=== PATIENT | female | born 1950 | race Caucasian/White ===

== ENCOUNTER 2021-02-25 17:31 | Observation (INO) ==
--- NOTE | 2021-02-25 17:42 | ERNOTE ---
Neuro HPI ER Record Date of Service: 02/25/21 Presenting Symptoms: facial droop, impaired speech Time Seen by Provider: 02/25/21 17:41 Source: patient, RN notes reviewed, past records Exam Limitations: no limitations Immunizations: IMMUNIZATION HX Immunizations Up to Date Yes History of Influenza Vaccine Yes Hx Pneumococcal Vaccination Yes Allergies/Adverse Reactions: Allergies Allergy/AdvReac Type Severity Reaction Status Date / Time Sulfa (Sulfonamide AdvReac Diarrhea Verified 02/25/21 17:44 Antibiotics) Home Medications: HOME MEDICATIONS cholecalciferol (vitamin D3) 125 mcg (5,000 unit) capsule 125 mcg PO DAILY [Last Taken Unknown] levothyroxine 75 mcg tablet See Rx Instructions .ROUTE .COMPLEX #30 tab 01/07/21 [Last Taken Unknown] duloxetine 30 mg capsule,delayed release 30 mg PO DAILY #30 cap 02/10/21 [Last Taken Unknown] Diphenoxylate HCl/Atropine [Lomotil 2.5-0.025 mg Tablet] 1 tab PO DAILY PRN 02/25/21 [Last Taken Unknown] Naproxen [Naprosyn] 500 mg PO DAILY PRN 02/25/21 [Last Taken Unknown] - History of Present Illness Narrative: Cristina is a 71-year-old female who presents to the emergency department from home by private vehicle for possible stroke. She began experiencing a facial droop and slurred speech approximately 20 minutes prior to arrival. This currently continues. She has no prior history of TIA or CVA. She reports that she was f eeling well prior to the episode. She experienced some nausea at the onset of the symptoms but this has resolved. Date (Duration): 02/25/21 Time (Timing): 17:10 Onset: sudden onset, continues in ER - Character of Deficits New weakness: Present: facial (lt) Additional Deficits: Present: impaired speech Baseline Cognition: Present: alert, oriented x 4 Baseline Gait: Present: walks w/o assistance Associated Symptoms: Denies: chest pain, headache, disoriented, confused Prior Treament: Denies: recently seen, similar symptoms before Review of Systems - Review of Systems Constitutional: Absent: recent illness, fever, chills EYE: Absent: eye pain, vision changes ENT: Absent: ear pain, nose congestion, nasal drainage, sore throat Respiratory: Absent: shortness of breath, cough Cardiology: Absent: chest pain, syncope Gastrointestinal/Abdominal: Present: nausea. Absent: vomiting, abdominal pain Genitourinary: Present: no symptoms reported Musculoskeletal: Present: no symptoms reported Skin: Absent: rash, lesions Neurological: Present: weakness - Right sided facial droop, pre-existing deficit - Left sided facial droop. Absent: headache, dizziness/light-headedness Endocrine: Present: no symptoms reported Hematologic/Lymphatic: Absent: easy bruising, easy bleeding Psych: Present: no symptoms reported Medical History (Last Updated 02/25/21 @ 19:34 by Lory Kee NP) Osteopenia (Chronic) Onset Date: ~2011 Hypothyroidism (Chronic) Onset Date: Unknown GERD (gastroesophageal reflux disease) (Chronic) Onset Date: Unknown Arthritis (Chronic) Onset Date: Unknown History of cardiac arrhythmia (Resolved) Onset Date: ~2008 COVID-19 Onset Date: ~11/16/20 De Quervain's disease (tenosynovitis) Onset Date: ~2011 Surgical History: Surgical History (Last Reviewed 02/25/21 @ 19:04 by Lory Kee NP) H/O tubal ligation Onset Date: ~1975 History of biopsy Onset Date: ~2010 vaginal biopsy 1978, 2010 History of breast surgery Onset Date: ~2004 bloody discharge from nipple rt breast History of colonoscopy Onset Date: ~2009 Dr Vincent non=specific increase in mucosal eosinophils History of dilation and curettage Onset Date: ~1969 History of esophagogastroduodenoscopy Onset Date: ~2009 History of total abdominal hysterectomy and bilateral salpingo-oophorectomy Onset Date: ~1989 History of vaginal surgery Onset Date: ~1970 vaginal and rectal reconstruction Family History: Family History (Last Reviewed 02/25/21 @ 19:04 by Lory Kee NP) Father Cancer kidney cancer CHF (congestive heart failure) Mother Stomach ulcer COPD (chronic obstructive pulmonary disease) Social History: (Last Reviewed 02/25/21 @ 19:04 by Lory Kee NP) Social History: Marital status: Service: No Tobacco: Smoking Status: Never smoker Alcohol: alcohol intake: former Substance Use: substance use type: does not use Dietary Habits: caffeine: Yes Physical Exam - Physical Exam General Appearance: Present: wd/wn, alert, mild distress Head Exam: Present: normal inspection, no evidence of injury Eye Exam: Normal inspection: bilateral, PERRL: bilateral, EOMI: bilateral Ears, Nose, Throat: Present: normal ENT inspection, normal pharynx Neck: Present: normal inspection, nontender, supple, full range of motion Respiratory: Present: no respiratory distress, normal breath sounds, no accessory muscle use, lungs clear Cardiovascular/Chest: Present: regular rate, rhythm, no murmur, normal perip heral pulses Gastrointestinal/Abdominal: Present: nontender, nondistended, soft Extremity Exam: Present: normal inspection, non-tender, normal range of motion, no edema Neurological Exam: Present: alert, oriented, facial droop, other - slurred speech. Absent: normal mood/affect, no motor/sensory deficits Skin Exam: Present: normal color, warm/dry Jose Antonio Coma Scale - Assess Eye Opening: Spontaneous Motor: Obeys Commands Verbal: Oriented - Total Coma Scale Total: 15 Initial Stroke Assessment - Date/Time of assessment Stroke Scale Date: 02/25/21 - n Stroke Scale Time: 17:41 - NIH Stroke Scale Level of Consciousness: Alert LOC Questions (Year and Age): Answers both correctly LOC Commands (open/close eyes/fist): Performs both correctly Lateral Gaze Paresis: None Visual Field Loss: No visual loss Facial Palsy: Partial facial paralysis Right Arm Motor (10 sec hold): No drift Left Arm Motor (10 sec hold): No drift Right Leg Motor (5 sec hold): No drift Left Leg Motor (5 sec hold): No drift Limb Ataxia (finger/nose heel/nugent): Absent Sensory Loss (pinprick arms/legs/face): No sensory loss Language Aphasia (description/naming/reading): No aphasia; normal Dysarthria (speech clarity): Slurring, intelligeble Neglect Inattention (visual/tactile/auditory/spatial/person): No neglect Initial Stroke Scale Score:: 3 Stroke Inclusion/Exclusion Cri - Inclusion Questions: Yes Onset of symptoms <3 1/2 hours of admission to ETC: Yes Secondary Stroke Assessment - Date/Time of assessment Stroke Scale Time: 18:08 - NIH Stroke Scale Level of Consciousness: Alert LOC Questions (Year and Age): Answers both correctly LOC Commands (open/close eyes/fist): Performs both correctly Lateral Gaze Paresis: None Visual Field Loss: No visual loss Facial Palsy: Normal movement Right Arm Motor (10 sec hold): No drift Left Arm Motor (10 sec hold): No drift Right Leg Motor (5 sec hold): No drift Left Leg Motor (5 sec hold): No drift Limb Ataxia (finger/nose heel/nugent): Absent Sensory Loss (pinprick arms/legs/face): No sensory loss Language Aphasia (description/naming/reading): No aphasia; normal Dysarthria (speech clarity): Normal articulation Neglect Inattention (visual/tactile/auditory/spatial/person): No neglect Secondary Stroke Scale Total:: 0 Progress - Results and Orders Patient's Lab Results:: I have reviewed the patient's lab results. - Vital Signs Patient's Vital Signs:: I have reviewed the patient's vital signs. - EKG EKG #1 EKG: NSR EKG read: Reviewed by me - X-Ray X-Ray #1 X-Ray: chest Interpretation: Reviewed by me X-ray Comments: No acute cardiopulmonary findings - CT/Ultrasound CT/Ultrasound Narrative: Head CT: Findings: Exam shows symmetric appearing ventricular system and cortical sulci. There is no positive mass effect or midline shift. There is no evidence for intracranial hemorrhage. There are no focal abnormal hypodensities to suggest vascular territory infarct. There appear to be postoperative changes to the ethmoid air cells and the right maxillary sinus. IMPRESSION: NO ACUTE INTRACRANIAL PATHOLOGY IDENTIFIED. FINDINGS TELEPHONED TO EMERGENCY ROOM PERSONNEL AT 1749 HOURS Electronically signed by Kalyan Rodrigues M.D.. - Progress/Reassessment Progress:: Improved Progress Note-Subjective: 02/25/21 19:30 The patient's slurred speech and facial droop resolved shortly after she returned from CT. I contacted Dr. Wallace at 1909. He agreed to admit the patient to observation status. When I discussed this with the patient at 1914, her speech has become slurred again. [facility] contacted. 02/25/21 20:[address] Clark, vascular neurology fellow at [facility], regarding the patient's speech deficit that had previously resolved. She advised that the patient could be given TPA if she felt that the possibility of her speech deficit resolving outweighed the risks associated with TPA administration. I discussed this with the patient and she does not want to take TPA. She is aware that her speech deficit may be permanent, and that her symptoms may even worsen. Dr. Wallace was updated with this information. Departure Clinical Impression: Stroke-like symptoms - Departure Disposition: Short Term Hospital Inpatient Condition: Stable Referrals: Juana Zamora MD [Primary Care Provider] -
[2021-02-25 18:05] LABS: Hematocrit 45.9 % (37.0-47.0); Hemoglobin 14.8 gm/dL (12.5-16.0); Mean Cell Volume 92.7 fl (78-100); Mean Corpuscular Hemoglobin 29.9 pg (27-31); Mean Corpuscular Hgb Conc 32.2 g/dl (32-36); Mean Platelet Volume 9.5 fl (8-12.5); Neutrophil # 3.6 K/mm3 (1.3-6.0); Neutrophil % 54.5 % (42-75.0); Platelet Count 317 K/mm3 (150-450); Red Blood Count 4.95 M/mm3 (4.2-5.4); Red Cell Distribution Width 12.6 % (11.5-14.0); White Blood Count 6.7 K/mm3 (4.0-10.5)
[2021-02-25 18:20] LABS: Urine Bilirubin Negative (NEGATIVE); Urine Blood Negative /ul (NEGATIVE); Urine Ketone Negative (NEGATIVE); Urine Nitrite Negative (NEGATIVE); Urine Protein Negative (NEGATIVE); Urine Urobilinogen Normal (NORMAL); Urine pH 7.5 pH (5.0-7.0)
[2021-02-25 18:23] LABS: Prothrombin Time (Patient) 10.7 Seconds (9.1-10.7)
[2021-02-25 18:25] LABS: INR 1.03 INR (0.92-1.08); Partial Thrombolplastin Time 26.4 Seconds (24-32)
[2021-02-25 18:27] LABS: Albumin * 3.5 gm/dl (3.4-5.0); Anion Gap 9.5 mmol/L (6.8-13.8); BUN/Creatinine Ratio 8.9 (9.0-21.6); Bilirubin, Total 0.3 mg/dL (0.0-1.1); Ca. Corrected For Albumin 8.7 mg/dL (8.4-10.2); Calcium * 8.6 mg/dL (7.9-10.9); Carbon Dioxide 29.1 mmol/L (24-32.6); Potassium 3.6 mmol/L (3.4-4.6); Total Protein 7.3 gm/dL (6.2-8.2)
[2021-02-25 18:47] LABS: Urine Appearance Clear (CLEAR); Urine Bacteria TRACE; Urine Color Pale Yellow; Urine RBC TRACE /hpf (0-5)
[2021-02-25] MEDS ORDERED: ROSUVASTATIN CALCIUM 10 MG TABLET PO SCH (21:45)
[2021-02-25] MEDS: CLOPIDOGREL BISULFATE 75 MG TABLET PO SCH (22:41)
[2021-02-25] MEDS: ASPIRIN 325 MG TABLET.DR PO SCH (22:41)
[2021-02-26] MEDS ORDERED: METOPROLOL TARTRATE 1 MG/ML AMPUL IV ONE (03:28)
[2021-02-26] MEDS ORDERED: LEVOTHYROXINE SODIUM 75 MCG TABLET PO SCH (07:00)
[2021-02-26] MEDS: ASPIRIN 325 MG TABLET.DR PO SCH (08:04)
[2021-02-26] MEDS: CLOPIDOGREL BISULFATE 75 MG TABLET PO SCH (08:04)
[2021-02-26] MEDS ORDERED: CLOPIDOGREL BISULFATE 75 MG TABLET PO SCH (09:00)
[2021-02-26] MEDS ORDERED: ASPIRIN 325 MG TABLET.DR PO SCH (09:00)
--- NOTE | 2021-02-26 10:54 | HPDIS ---
Chief Complaint - Chief Complaint Date of Service: 02/26/21 Time of Service: 10:31 Chief Complaint: Facial droop, slurred speech History of Present Illness: 71-year-old female with history of hypothyroidism and depression presented to the hospital yesterday evening for sudden onset left-sided facial droop and slurring of speech. When this episode began she also was nauseated. ER work-up was unremarkable and her symptoms resolved within 20 to 30 minutes of her arrival. CT scan showed no intracranial pathology or bleeds, her lab work was unremarkable. Normal CHEM panel and normal kidney function. CBC unremarkable as well. Urine did show some leukocyte esterase, trace bacteria, trace white blood cells but she is asymptomatic from a neuro standpoint. Urine culture came back this morning with a greater than 100,000 gram-negative bacilli. Patient was admitted under observation for TIA. Prior to being moved to the floor the patient still endorsed some difficulty with speech but the ER provider working her up did not notice it. This morning when evaluated patient had no neurologic dysfunction whatsoever, speech was back to normal, upper and lower extremity strength and sensation was intact, and cranial nerves were intact. Patient does have a chronic left sided facial droop which is mild she states has been there "for as long as she can remember ". This is not new to her recent presentation. Normal facial strength with good resolution of the facial droop when she smiles but it does return when she is around her face to rest. Her vital signs have been stable and she is been afebrile. She was started on a statin medication and Plavix. She was not started on on any antibiotics by the ER physician, will start her on this today. She is allergic to sulfa medications. Medical History (Last Updated 02/25/21 @ 19:34 by Lory Kee NP) Osteopenia (Chronic) Onset Date: ~2011 Hypothyroidism (Chronic) Onset Date: Unknown GERD (gastroesophageal reflux disease) (Chronic) Onset Date: Unknown Arthritis (Chronic) Onset Date: Unknown History of cardiac arrhythmia (Resolved) Onset Date: ~2008 COVID-19 Onset Date: ~11/16/20 De Quervain's disease (tenosynovitis) Onset Date: ~2011 Surgical History: Surgical History (Last Reviewed 02/25/21 @ 21:44 by Rupinder Richardson RN) H/O tubal ligation Onset Date: ~1975 History of biopsy Onset Date: ~2010 vaginal biopsy 1978, 2010 History of breast surgery Onset Date: ~2004 bloody discharge from nipple rt breast History of colonoscopy Onset Date: ~2009 Dr Vincent non=specific increase in mucosal eosinophils History of dilation and curettage Onset Date: ~1969 History of esophagogastroduodenoscopy Onset Date: ~2009 History of total abdominal hysterectomy and bilateral salpingo-oophorectomy Onset Date: ~1989 History of vaginal surgery Onset Date: ~1970 vaginal and rectal reconstruction Family History: Family History (Last Reviewed 02/25/21 @ 21:43 by Rupinder Richardson RN) Father Cancer kidney cancer CHF (congestive heart failure) Mother Stomach ulcer COPD (chronic obstructive pulmonary disease) Social History: (Last Updated 02/25/21 @ 21:44 by Rupinder Richardson RN) Social History: Marital status: lives independently: Yes household members: spouse number of children: 2 number of grandchildren: 5 caregiver/support person: No Service: No Tobacco: Smoking Status: Never smoker Alcohol: alcohol intake: former Substance Use: substance use type: does not use Dietary Habits: caffeine: Yes Review Of Systems (GEN) - Review of Systems Generalized/Overall Review: Absent: Weakness, Chills, Fever EENTM: Absent: Eye Pain, Double Vision Respiratory: Absent: Cough, Shortness of Breath Cardiac: Absent: Chest Pain, Edema Abdominal: Absent: Nausea, Vomiting, Abdominal Pain Genitourinary: Absent: Burning, Urgency, Frequency Musculoskeletal: Present: No Symptoms Reported Neurological: Present: Pre-existing Deficit - Mild left-sided facial droop around her mouth. Absent: Headache, Numbness, Weakness Skin: Present: No Symptoms Reported Endocrine: Present: No Symptoms Reported Immunizations: IMMUNIZATION HX Immunizations Up to Date Yes History of Influenza Vaccine Yes Hx Pneumococcal Vaccination Yes Allergies/Adverse Reactions: Allergies Allergy/AdvReac Type Severity Reaction Status Date / Time Sulfa (Sulfonamide AdvReac Diarrhea Verified 02/25/21 17:44 Antibiotics) Home Medications: HOME MEDICATIONS cholecalciferol (vitamin D3) 125 mcg (5,000 unit) capsule 125 mcg PO DAILY 09/25/20 [Last Taken Unknown] DULoxetine HCL [Cymbalta] 30 mg PO HS 02/25/21 [Last Taken Unknown] Diphenoxylate HCl/Atropine [Lomotil 2.5-0.025 mg Tablet] 1 tab PO DAILY PRN 02/25/21 [Last Taken Unknown] Levothyroxine Sodium [Synthroid] See Rx Instructions PO .COMPLEX 02/25/21 [Last Taken Unknown] Aspirin [Aspirin Enteric Coated] 325 mg PO DAILY #30 tablet.dr 02/26/21 [Last Taken Unknown] Atorvastatin Calcium 20 mg PO DAILY #30 tab 02/26/21 [Last Taken Unknown] Cephalexin Monohydrate [Keflex] 500 mg PO Q12H #10 cap 02/26/21 [Last Taken Unknown] Clopidogrel Bisulfate [Plavix] 75 mg PO DAILY #30 tab 02/26/21 [Last Taken Unknown] Exam - Exam Vital Signs: Vital Signs - Last Taken Temp 36.5 C 02/26/21 08:05 Pulse 73 02/26/21 08:05 Resp 18 02/26/21 08:05 BP 122/64 02/26/21 08:05 Pulse Ox 95 02/26/21 08:05 Constitutional: Present: Alert, Oriented x3, Cooperative, Elderly ENT Exam: Present: hearing grossly normal Eye Exam: bilateral eye: normal inspection, PERRL, EOMI Neck: Present: non-tender, supple Back Exam: Present: no CVA tenderness Respiratory: Present: lungs clear, normal breath sounds, no respiratory distress Cardiovascular/Chest: Present: regular rate, rhythm, no murmur Peripheral Pulses: dorsalis-pedis (R): 2+, dorsalis-pedis (L): 2+ Abdomen: Present: soft, nontender, nondistended Extremity: Present: non-tender, normal inspection, no pedal edema Skin Exam: Present: normal color, warm/dry 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 Absent: motor weakness, sensory deficit, dizzy/light- headedness Appearance: Present: appropriate appearance, appropriate insight, neat. Absent: impaired insight, impaired recent memory Eye contact: Present: cooperative, good eye contact Thoughts: Present: normal thought pattern, normal mood /affect Diagnostic Studies: Abnormal Lab Results 02/25/21 02/25/21 02/25/21 Range/Units 17:50 18:00 18:00 Eosinophils % 3.1 H (0.0-3.0) % Basophils % 1.6 H (0.0-1.0) % Est GFR (Non-Af Amer) 45 L (60-130) mL/min BUN/Creatinine Ratio 8.9 L (9.0-21.6) Ur Leukocyte Esterase 100 H (NEGATIVE) /ul Urine WBC 5-10 H (0-5) /hpf Microbiology 02/25/21 18:13 Urine Culture - Preliminary Urine,Voided Gram Negative Bacilli Laboratory Results WBC 6.7 K/mm3 (4.0-10.5) 02/25/21 18:00 RBC 4.95 M/mm3 (4.2-5.4) 02/25/21 18:00 Hgb 14.8 gm/dL (12.5-16.0) 02/25/21 18:00 Hct 45.9 % (37.0-47.0) 02/25/21 18:00 MCV 92.7 fl (78-100) 02/25/21 18:00 MCH 29.9 pg (27-31) 02/25/21 18:00 MCHC 32.2 g/dl (32-36) 02/25/21 18:00 RDW 12.6 % (11.5-14.0) 02/25/21 18:00 Plt Count 317 K/mm3 (150-450) 02/25/21 18:00 MPV 9.5 fl (8-12.5) 02/25/21 18:00 Immature Gran % (Auto) 0.30 % (0.001-0.429) 02/25/21 18:00 Immature Gran # (Auto) 0.02 K/mm3 (0.000-0.0310) 02/25/21 18:00 Neutrophils % 54.5 % (42-75.0) 02/25/21 18:00 Lymphocytes % 32.7 % (20-51) 02/25/21 18:00 Monocytes % 7.8 % (0.0-9) 02/25/21 18:00 Eosinophils % 3.1 % (0.0-3.0) H 02/25/21 18:00 Basophils % 1.6 % (0.0-1.0) H 02/25/21 18:00 Nucleated RBC % 0.0 k/mm3 (0-1) 02/25/21 18:00 Neutrophils # 3.6 K/mm3 (1.3-6.0) 02/25/21 18:00 Lymphocytes # 2.19 k/mm3 (1.5-3.5) 02/25/21 18:00 Monocytes # 0.5 k/mm3 (0.0-1.0) 02/25/21 18:00 Eosinophils # 0.2 k/mm3 (0.0-0.7) 02/25/21 18:00 Absolute Basophils 0.1 k/mm3 (0.0-0.1) 02/25/21 18:00 ESR 14 mm/hr (0-15) 02/25/21 18:00 PT 10.7 Seconds (9.1-10.7) 02/25/21 18:00 INR (Anticoag Therapy) 1.03 INR (0.92-1.08) 02/25/21 18:00 PTT (Nu) 26.4 Seconds (24-32) 02/25/21 18:00 Sodium 139 mmol/L (132-142) 02/25/21 18:00 Plasma Sodium 139 mmol/L (130-142) 02/25/21 18:00 Potassium 3.6 mmol/L (3.4-4.6) 02/25/21 18:00 Chloride 104 mmol/L (97-106) 02/25/21 18:00 Carbon Dioxide 29.1 mmol/L (24-32.6) 02/25/21 18:00 Anion Gap 9.5 mmol/L (6.8-13.8) 02/25/21 18:00 BUN 11 mg/dL (3-23) 02/25/21 18:00 Creatinine 1.24 mg/dL (0.4-1.4) 02/25/21 18:00 Est GFR (Non-Af Amer) 45 mL/min (60-130) L 02/25/21 18:00 BUN/Creatinine Ratio 8.9 (9.0-21.6) L 02/25/21 18:00 Random Glucose 100 mg/dL (70-110) 02/25/21 18:00 Calcium 8.6 mg/dL (7.9-10.9) 02/25/21 18:00 Calcium Adj for Albumin 8.7 mg/dL (8.4-10.2) 02/25/21 18:00 Total Bilirubin 0.3 mg/dL (0.0-1.1) 02/25/21 18:00 AST 18 U/L (0-48) 02/25/21 18:00 ALT 26 U/L (19-67) 02/25/21 18:00 Alkaline Phosphatase 85 U/L (50-170) 02/25/21 18:00 Total Protein 7.3 gm/dL (6.2-8.2) 02/25/21 18:00 Albumin 3.5 gm/dl (3.4-5.0) 02/25/21 18:00 Urine Color Pale yellow 02/25/21 17:50 Urine Appearance Clear (CLEAR) 02/25/21 17:50 Urine pH 7.5 pH (5.0-7.0) 02/25/21 17:50 Ur Specific [place] 1.010 SP.GR. (1.005-1.010) 02/25/21 17:50 Urine Protein Negative mg/dL (NEGATIVE) 02/25/21 17:50 Urine Glucose (UA) Negative mg/dL (NEGATIVE) 02/25/21 17:50 Urine Ketones Negative mg/dL (NEGATIVE) 02/25/21 17:50 Urine Blood Negative /ul (NEGATIVE) 02/25/21 17:50 Urine Nitrate Negative (NEGATIVE) 02/25/21 17:50 Urine Bilirubin Negative mg/dl (NEGATIVE) 02/25/21 17:50 Urine Urobilinogen Normal EU/dl (NORMAL) 02/25/21 17:50 Ur Leukocyte Esterase 100 /ul (NEGATIVE) H 02/25/21 17:50 Urine RBC Trace /hpf (0-5) 02/25/21 17:50 Urine WBC 5-10 /hpf (0-5) H 02/25/21 17:50 Ur Epithelial Cells 0-5 /hpf (0-5) 02/25/21 17:50 Urine Bacteria Trace (NONE) 02/25/21 17:50 Urine Culture Comments Culture to follow 02/25/21 17:50 SARS-CoV-2 (PCR) Not detected (NotDetected) 02/25/21 19:50 Assessment/Plan - Narrative Narrative: Patient placed in observation for TIA where she had neuro checks that were un remarkable overnight. Patient completely neurologically intact this morning and is ready for home. She has no concerns or complaints. She feels well. She was able to tolerate oral intake without any issues. Patient will be discharged home on a statin medicine, Plavix, aspirin, with follow-up with her PCP in 1 week for outpatient work-up. Patient likely need an echocardiogram of her heart, carotid Doppler study at that time. No further imaging of her brain warranted unless symptoms return. Patient will also likely need referral to cardiology as she had roughly 2-hour episode of atrial flutter but she converted back to normal sinus rhythm on her own without any intervention has been in a regular rhythm and rate since. Again denies chest pain or shortness of breath. She has no cardiac history. Only changes to her medications will be discontinued naproxen. She will also be started on Keflex BID for 5 days. - Assessment/Plan (1) TIA (transient ischemic attack) Problem: Acute (2) Hypothyroidism Problem: Chronic (3) Depression Problem: Acute (4) UTI (urinary tract infection) Problem: Acute Qualifiers: Urinary tract infection type: acute cystitis (1) TIA (transient ischemic attack) Problem: Acute (2) Hypothyroidism Problem: Chronic (3) Depression Problem: Acute (4) UTI (urinary tract infection) Problem: Acute Date of Discharge:: 02/26/21 Hospital Course: Patient placed in observation for TIA where she had neuro checks that were unremarkable overnight. Patient completely neurologically intact this morning and is ready for home. She has no concerns or complaints. She feels well. She was able to tolerate oral intake without any issues. Patient will be discharged home on a statin medicine, Plavix, aspirin, with follow-up with her PCP in 1 week for outpatient work-up. Patient likely need an echocardiogram of her heart, carotid Doppler study at that time. No further imaging of her brain warranted unless symptoms return. Patient will also likely need referral to cardiology as she had roughly 2-hour episode of atrial flutter but she converted back to normal sinus rhythm on her own without any intervention has been in a regular rhythm and rate since. Again denies chest pain or shortness of breath. She has no cardiac history. Only changes to her medications will be discontinued naproxen. She will also be started on Keflex BID for 5 days. 1 hour critical care time spent with patient for history and physical, review of labs, determination of treatment plan, med reconciliation and medication prescription, as well as follow-up with her PCP. Procedures Performed: none Results and Findings: Pending Mircobiology Results 02/25/21 18:13 Urine,Voided Urine Culture - Preliminary Gram Negative Bacilli Lab Pending Results 02/25/21 17:50: Urine Color Pale yellow, Urine Appearance Clear, Urine pH 7.5, Ur Specific [place] 1.010, Urine Protein Negative, Urine Glucose (UA) Negative, Urine Ketones Negative, Urine Blood Negative, Urine Nitrate Negative, Urine Bilirubin Negative, Urine Urobilinogen Normal, Ur Leukocyte Esterase 100 H, Urine RBC Trace, Urine WBC 5-10 H, Ur Epithelial Cells 0-5, Urine Bacteria Trace, Urine Culture Comments Culture to follow 02/25/21 18:00: WBC 6.7, RBC 4.95, Hgb 14.8, Hct 45.9, MCV 92.7, MCH 29.9, MCHC 32.2, RDW 12.6, Plt Count 317, MPV 9.5, Immature Gran % (Auto) 0.30, Immature Gran # (Auto) 0.02, Neutrophils % 54.5, Lymphocytes % 32.7, Monocytes % 7.8, Eosinophils % 3.1 H, Basophils % 1.6 H, Nucleated RBC % 0.0, Neutrophils # 3.6, Lymphocytes # 2.19, Monocytes # 0.5, Eosinophils # 0.2, Absolute Basophils 0.1 02/25/21 18:00: ESR 14 02/25/21 18:00: PT 10.7, INR (Anticoag Therapy) 1.03, PTT ([place]) 26.4 02/25/21 18:00: Sodium 139, Plasma Sodium 139, Potassium 3.6, Chloride 104, Carbon Dioxide 29.1, Anion Gap 9.5, BUN 11, Creatinine 1.24, Est GFR (Non-Af Amer) 45 L, BUN/Creatinine Ratio 8.9 L, Random Glucose 100, Calcium 8.6, Calcium Adj for Albumin 8.7, Total Bilirubin 0.3, AST 18, ALT 26, Alkaline Phosphatase 85, Total Protein 7.3, Albumin 3.5 02/25/21 19:50: SARS-CoV-2 (PCR) Not detected Discharge Location: Home Disposition: Home self-care Condition: Stable Discharge Activity: Activity as tolerated Discharge Diet: General/regular food Referrals: Juana Zamora MD [Primary Care Provider] - One Week Problem Oriented Discharge Instructions to Patient/Family: Transient Ischemic Attack, [id number] Additional Patient Instructions (free text): Follow up appointment with on March 09 at 10:15. Prescriptions (Any new or edited meds): Aspirin [Aspirin Enteric Coated] 325 mg PO DAILY #30 tablet. Transmission Status: Pending to [facility] Atorvastatin Calcium 20 mg PO DAILY #30 tab Transmission Status: Pending to [facility] Cephalexin Monohydrate [Keflex] 500 mg PO Q12H #10 cap Transmission Status: Pending to [facility] Clopidogrel Bisulfate [Plavix] 75 mg PO DAILY #30 tab Transmission Status: Pending to [facility] Complete Home Medications List: Complete Home Medication List: cholecalciferol (vitamin D3) 125 mcg (5,000 unit) capsule 125 mcg PO DAILY 09/25/20 DULoxetine HCL [Cymbalta] 30 mg PO HS 02/25/21 Diphenoxylate HCl/Atropine [Lomotil 2.5-0.025 mg Tablet] 1 tab PO DAILY PRN 02/25/21 Levothyroxine Sodium [Synthroid] See Rx Instructions PO .COMPLEX 02/25/21 Aspirin [Aspirin Enteric Coated] 325 mg PO DAILY #30 tablet. 02/26/21 Atorvastatin Calcium 20 mg PO DAILY #30 tab 02/26/21 Cephalexin Monohydrate [Keflex] 500 mg PO Q12H #10 cap 02/26/21 Clopidogrel Bisulfate [Plavix] 75 mg PO DAILY #30 tab 02/26/21 Forms: Patient Portal Registration
[2021-02-26 10:55] VITALS: BP 128/72
[2021-02-26] MEDS ORDERED: CEPHALEXIN MONOHYDRATE 500 MG CAPSULE PO SCH (11:00)
[2021-02-26] MEDS ORDERED: DULoxetine HCL 30 MG CAPSULE.SA PO SCH (21:00)
== END 2021-02-26 11:24 | disposition home or self-care (01) ==
LOC: ER 17:31 → MS 17:31
PROVIDERS: ADMIT Family Medicine; ATTEND Family Medicine
DX: R47.81 Slurred speech; G45.9 Transient cerebral ischemic attack, unspecified; E03.9 Hypothyroidism, unspecified; R29.90 Unspecified symptoms and signs involving the nervous system; N30.00 Acute cystitis without hematuria; F32.9 Major depressive disorder, single episode, unspecified